=== PATIENT | male | born 1950 | race Caucasian/White ===

== ENCOUNTER 2019-05-25 11:07 | Emergency (ER) | payer MEDICARE, MEDICAID ==
[~2019-05-25] VITALS: Ht 182.9 cm; Wt 95.7 kg
--- NOTE | 2019-05-25 11:50 | ED General ---
General Chief Complaint: General Problems/Pain Stated Complaint: SEIZURE Nursing Triage Note: PT REPORTS HE HAS BEEN PRETENDING TO HAVE SEIZURES WHILE GETTING PHYSICAL THERAPY AT [facility] BECAUSE "I DONT WANNA DO THAT G DAMN THERAPY". PT DENIES PAIN OR ANY COMPLAINTS OTHER THAN HE REFUSES TO CONTINUE THE THERAPY RECOMMENDED POST OP BELOW THE KNEE AMPUTATION IN REHAB. Nursing Sepsis Screen: No Definite Risk Source of Information: Patient, EMS, Family Exam Limitations: No Limitations History of Present Illness Date Seen by Provider: May 25, 2019 Time Seen by Provider: 11:30 Initial Comments Presents via EMS with complaint of seizures. Caregivers state he has been having seizures and unable to therapy. Occurring a few times weekly. Seizures last less than 5 minutes. Known history of epilepsy and taking Keppra. No postictal symptoms awake and alert without complaints otherwise on arrival. Patient currently has a wound VAC on his right lower extremity from below knee amputation feb 07 2019 Tells nursing staff that he has the seizures on purpose so that he doesn't have to do his therapy. Allergies and Home Medications Patient Home Medication List Home Medication List Reviewed: Yes Review of Systems Review of Systems Constitutional: no symptoms reported; No dizziness, No fever, No malaise, No weakness Cardiovascular: no symptoms reported; No chest pain, No edema, No palpitations, No syncope, No vascular heart diseas Gastrointestinal: No abdominal pain, No nausea, No vomiting Musculoskeletal: No back pain, No joint pain, No joint swelling, No muscle pain Past Repjhhb-Yfezeb-Ewyujj Hx Patient Social History Alcohol Use: Denies Use Recreational Drug Use: No Smoking Status: Former Smoker Type Used: Cigarettes 2nd Hand Smoke Exposure: No Recent Foreign Travel: No Contact w/Someone Who Travel: No Recent Infectious Disease Expo: No Recent Hopitalizations: Yes Physical Abuse: No Sexual Abuse: No Mistreated: No Fear: No Seasonal Allergies Seasonal Allergies: No Past Medical History Surgeries: Yes (JAW SURGERY D/T INJURY) Amputation, CABG, Coronary Stent, Orthopedic Cardiac: Yes Coronary Artery Disease, Hypertension, Peripheral Vascular Neurological: Yes Neuropathy, Seizure Disorder Genitourinary: Yes Benign Prostatic Hyperpl, Prostate Problems, UTI-Chronic Gastrointestinal: Yes Gastroesophageal Reflux Musculoskeletal: Yes Amputee Endocrine: Yes Diabetes, Non-Insulin dep Are Your Blood Sugars Over 250: No HEENT: No Cancer: No Psychosocial: No Integumentary: Yes (WOUND VAC PRESENT FOR INFECTION OF AMPUTATED LEG) Blood Disorders: No Physical Exam Vital Signs Vital Signs - First Documented 05/25/19 11:18 Temp 97.0 Pulse 78 Resp 18 B/P (MAP) 139/85 (103) O2 Delivery Room Air Capillary Refill : Less Than 3 Seconds Height, Weight, BMI Height: 6'" Weight: 211lbs. oz. [id number]; BMI Method:Stated General Appearance: No Apparent Distress, WD/WN; No Anxious, No Mild Distress Respiratory: Chest Non Tender, Lungs Clear, Normal Breath Sounds Cardiovascular: Regular Rate, Rhythm, No Edema, No Murmur Gastrointestinal: Normal Bowel Sounds, No Organomegaly, Non Tender, Soft Extremity: Normal Capillary Refill, No Calf Tenderness, Other (R BKA w wound vac) Neurologic/Psychiatric: Alert, Oriented x3, No Motor/Sensory Deficits, Normal Mood/Affect, making department preparer II-XII Norm as Tested; No Aphasia, No Facial Droop, No Motor Weakness Skin: Normal Color, Warm/Dry Progress/Results/Core Measures Suspected Sepsis Recent Fever Within 48 Hours: No Infection Criteria Present: None New/Unexplained Altered Menta: No Sepsis Screen: No Definite Risk SIRS Temperature:97.0 Pulse: 78 Respiratory Rate: 18 Laboratory Tests 05/25/19 11:55: White Blood Count 8.8 Blood Pressure 139 /85 Mean: 103 Laboratory Tests 05/25/19 11:55: Creatinine 0.78, Platelet Count 190, Total Bilirubin 0.4 Results/Orders Lab Results Laboratory Tests Test 05/25/19 11:55 Range/Units White Blood Count 8.8 4.3-11.0 10^3/uL Red Blood Count 4.94 4.35-5.85 10^6/uL Hemoglobin 14.3 13.3-17.7 G/DL Hematocrit 44 40-54 % Mean Corpuscular Volume 90 80-99 FL Mean Corpuscular Hemoglobin 29 25-34 PG Mean Corpuscular Hemoglobin Concent 32 32-36 G/DL Red Cell Distribution Width 14.7 H 10.0-14.5 % Platelet Count 190 130-400 10^3/uL Mean Platelet Volume 11.0 H 7.4-10.4 FL Neutrophils (%) (Auto) 55 42-75 % Lymphocytes (%) (Auto) 29 12-44 % Monocytes (%) (Auto) 8 0-12 % Eosinophils (%) (Auto) 7 0-10 % Basophils (%) (Auto) 1 0-10 % Neutrophils # (Auto) 4.8 1.8-7.8 X 10^3 Lymphocytes # (Auto) 2.6 1.0-4.0 X 10^3 Monocytes # (Auto) 0.7 0.0-1.0 X 10^3 Eosinophils # (Auto) 0.6 H 0.0-0.3 10^3/uL Basophils # (Auto) 0.1 0.0-0.1 10^3/uL Sodium Level 142 135-145 MMOL/L Potassium Level 4.4 3.6-5.0 MMOL/L Chloride Level 102 98-107 MMOL/L Carbon Dioxide Level 29 21-32 MMOL/L Anion Gap 11 5-14 MMOL/L Blood Urea Nitrogen 18 7-18 MG/DL Creatinine 0.78 0.60-1.30 MG/DL Estimat Glomerular Filtration Rate > 60 BUN/Creatinine Ratio 23 Glucose Level 126 H 70-105 MG/DL Calcium Level 9.4 8.5-10.1 MG/DL Corrected Calcium 9.6 8.5-10.1 MG/DL Total Bilirubin 0.4 0.1-1.0 MG/DL Aspartate Amino Transf (AST/SGOT) 14 5-34 U/L Alanine Aminotransferase (ALT/SGPT) 13 0-55 U/L Alkaline Phosphatase 106 40-136 U/L Total Protein 7.4 6.4-8.2 GM/DL Albumin 3.8 3.2-4.5 GM/DL My Orders Orders - ROVENSTINE,YOSSI L DO Levetiracetam Level (Keppra) (05/25/19 11:43) Cbc With Automated Diff (05/25/19 11:43) Comprehensive Metabolic Panel (05/25/19 11:43) Urinalysis (05/25/19 11:43) Vital Signs/I&O 05/25/19 11:18 Temp 97.0 Pulse 78 Resp 18 B/P (MAP) 139/85 (103) O2 Delivery Room Air Capillary Refill : Less Than 3 Seconds Blood Pressure Mean: 103 Departure Impression Primary Impression: Epilepsy Qualified Codes: G40.909 - Epilepsy, unspecified, not intractable, without status epilepticus Disposition: 03 XFER SNF (patient currently residing at [facility]) Condition: Stable Departure-Patient Inst. Decision time for Depature: 12:31 Patient Instructions: Epilepsy in Adults Add. Discharge Instructions: All discharge instructions reviewed with patient and/or family. Voiced understanding. Advised to see Primary Care Provider in 5 to 7 days to discuss Epilepsy and Keppra levels (lab drawn today 25 May) YOSSI THOMAS DO May 25, 2019 11:50
[2019-05-25 12:25] LABS: BASOPHILS % (AUTO) 1 % (0-10); EOSINOPHILS # (AUTO) 0.6 10^3/uL (0.0-0.3); EOSINOPHILS % (AUTO) 7 % (0-10); HEMATOCRIT 44 % (40-54); HEMOGLOBIN 14.3 G/DL (13.3-17.7); LYMPHOCYTES # (AUTO) 2.6 X 10^3 (1.0-4.0); LYMPHOCYTES % (AUTO) 29 % (12-44); MEAN CORPUSCULAR HEMOGLOBIN 29 PG (25-34); MEAN CORPUSCULAR HGB CONC 32 G/DL (32-36); MEAN CORPUSCULAR VOLUME 90 FL (80-99); MONOCYTES # (AUTO) 0.7 X 10^3 (0.0-1.0); MONOCYTES % (AUTO) 8 % (0-12); NEUTROPHILS # (AUTO) 4.8 X 10^3 (1.8-7.8); NEUTROPHILS % (AUTO) 55 % (42-75); PLATELET COUNT 190 10^3/uL (130-400); RED CELL DISTRIBUTION WIDTH 14.7 % (10.0-14.5); WHITE BLOOD COUNT 8.8 10^3/uL (4.3-11.0)
[2019-05-25 12:26] LABS: BASOPHILS # (AUTO) 0.1 10^3/uL (0.0-0.1)
[2019-05-25 12:28] LABS: ALANINE AMINOTRANSFERASE 13 U/L (0-55); ALBUMIN 3.8 GM/DL (3.2-4.5); ALKALINE PHOSPHATASE 106 U/L (40-136); BILIRUBIN,TOTAL 0.4 MG/DL (0.1-1.0); BUN/CREATININE RATIO 23; CALCIUM 9.4 MG/DL (8.5-10.1); CARBON DIOXIDE 29 MMOL/L (21-32); CHLORIDE 102 MMOL/L (98-107); CREATININE SERUM 0.78 MG/DL (0.60-1.30); GFR ESTIMATED > 60; GLUCOSE 126 MG/DL (70-105); POTASSIUM 4.4 MMOL/L (3.6-5.0); SODIUM 142 MMOL/L (135-145); TOTAL PROTEIN 7.4 GM/DL (6.4-8.2)
[2019-05-25 12:30] VITALS: BP 142/72
== END 2019-05-25 12:35 | disposition home or self-care (01) ==
LOC: ER FS 11:08
DX: G40.909 Epilepsy, unspecified, not intractable, without status epilepticus (principal); I25.10 Atherosclerotic heart disease of native coronary artery without angina pectoris; I10 Essential (primary) hypertension; E11.51 Type 2 diabetes mellitus with diabetic peripheral angiopathy without gangrene; E11.40 Type 2 diabetes mellitus with diabetic neuropathy, unspecified; N40.0 Benign prostatic hyperplasia without lower urinary tract symptoms; K21.9 Gastro-esophageal reflux disease without esophagitis; Z87.440 Personal history of urinary (tract) infections; Z87.891 Personal history of nicotine dependence; Z95.1 Presence of aortocoronary bypass graft; Z95.5 Presence of coronary angioplasty implant and graft; Z89.511 Acquired absence of right leg below knee
CPT/HCPCS: 36415; 80053; 80177; 85025

== ENCOUNTER 2019-06-04 13:47 | Emergency (ER) | payer MEDICARE, MEDICAID ==
[~2019-06-04] VITALS: Ht 183 cm; Wt 94.5 kg
--- NOTE | 2019-06-04 14:27 | Diagnostic Imaging Report ---
PROCEDURE: CT head without contrast. TECHNIQUE: Multiple contiguous axial images were obtained through the brain without the use of intravenous contrast. Auto Exposure Controls were utilized during the CT exam to meet ALARA standards for radiation dose reduction. INDICATION: Altered mental status. COMPARISON: None. FINDINGS: Advanced generalized cerebral and cerebellar parenchymal volume loss. Advanced leukoaraiosis. No CT evidence of a territorial infarction. Intracranial vascular calcifications. Advanced mucosal thickening in the partially visualized left maxillary sinus. The mastoids are clear. Osseous structures are intact. IMPRESSION: 1. No acute intracranial CT findings. 2. Advanced mucosal thickening in the left maxillary sinus. Dictated by: Dictated on workstation # [id number]
--- NOTE | 2019-06-04 14:36 | Diagnostic Imaging Report ---
INDICATION: Altered mental status and seizure-like activity. Frontal chest obtained at 2:05 p.m. FINDINGS: The heart is normal in size. Patient has had prior sternotomy. Mediastinal silhouette appears unremarkable. The lungs are clear. There is no pneumothorax or pleural fluid. IMPRESSION: Negative chest. Dictated by: Dictated on workstation # [id number]
[2019-06-04] MEDS ORDERED: LEVETIRACETAM INJECTION 1,000 MG in NS (IVPB) 100 ML IV ONE (14:45)
[2019-06-04 14:59] LABS: EOSINOPHILS % (AUTO) 7 % (0-10); HEMATOCRIT 45 % (40-54); HEMOGLOBIN 14.8 G/DL (13.3-17.7); LYMPHOCYTES % (AUTO) 27 % (12-44); MEAN CORPUSCULAR HEMOGLOBIN 29 PG (25-34); MEAN CORPUSCULAR HGB CONC 33 G/DL (32-36); MEAN CORPUSCULAR VOLUME 88 FL (80-99); MEAN PLATELET VOLUME 10.9 FL (7.4-10.4); MONOCYTES % (AUTO) 9 % (0-12); NEUTROPHILS % (AUTO) 56 % (42-75); PLATELET COUNT 230 10^3/uL (130-400); RED CELL DISTRIBUTION WIDTH 14.3 % (10.0-14.5); WHITE BLOOD COUNT 8.1 10^3/uL (4.3-11.0)
[2019-06-04 15:00] LABS: BASOPHILS # (AUTO) 0.1 10^3/uL (0.0-0.1); BASOPHILS % (AUTO) 1 % (0-10); EOSINOPHILS # (AUTO) 0.6 10^3/uL (0.0-0.3); LYMPHOCYTES # (AUTO) 2.2 X 10^3 (1.0-4.0); MONOCYTES # (AUTO) 0.7 X 10^3 (0.0-1.0); NEUTROPHILS # (AUTO) 4.5 X 10^3 (1.8-7.8)
[2019-06-04 15:07] LABS: INR 1.1 (0.8-1.4); PROTHROMBIN TIME PATIENT 14.5 SEC (12.2-14.7)
--- NOTE | 2019-06-04 15:07 | ED General ---
General Chief Complaint: Neuro-Stroke Like Symptoms Stated Complaint: SEIZURE-LIKE ACTIVITY History of Present Illness Date Seen by Provider: Jun 04, 2019 Time Seen by Provider: 15:04 Initial Comments Patient presenting to the emergency department for evaluation of reported seizure activity. He has a diagnosis of epilepsy and is on 750 mg of Keppra twice daily. He has absence seizures and reportedly had 3 of them back to back to the custodial this afternoon and was quite confused afterwards and could not move his left side of his body. Patient is confused on arrival and on my exam he can move his left arm but he can not move his left leg. He denies any pain to me. says that he has been having more seizures and he was due to see his neurologist and possibly have his Keppra adjusted upwards. He is in no obvious distress with normal vital signs. Allergies and Home Medications Allergies Coded Allergies: No Known Drug Allergies (Unverified , 06/04/19) Patient Home Medication List Home Medication List Reviewed: Yes Review of Systems Review of Systems Constitutional: no symptoms reported EENTM: no symptoms reported Respiratory: no symptoms reported Cardiovascular: no symptoms reported Gastrointestinal: no symptoms reported Genitourinary: no symptoms reported Musculoskeletal: no symptoms reported Skin: no symptoms reported Psychiatric/Neurological: No Symptoms Reported Hematologic/Lymphatic: No Symptoms Reported Past Pmfadcg-Dprnju-Veczkw Hx Patient Social History Type Used: Cigarettes 2nd Hand Smoke Exposure: No Recent Hopitalizations: Yes Seasonal Allergies Seasonal Allergies: No Past Medical History Surgeries: Yes (JAW SURGERY D/T INJURY) Amputation, CABG, Coronary Stent, Orthopedic Cardiac: Yes Coronary Artery Disease, Hypertension, Peripheral Vascular Neurological: Yes Neuropathy, Seizure Disorder Genitourinary: Yes Benign Prostatic Hyperpl, Prostate Problems, UTI-Chronic Gastrointestinal: Yes Gastroesophageal Reflux Musculoskeletal: Yes Amputee Endocrine: Yes Diabetes, Non-Insulin dep HEENT: No Cancer: No Psychosocial: No Integumentary: Yes (WOUND VAC PRESENT FOR INFECTION OF AMPUTATED LEG) Blood Disorders: No Physical Exam Vital Signs Capillary Refill : Height, Weight, BMI Height: 6'" Weight: 211lbs. oz. 95.001797fe; BMI Method:Stated General Appearance: No Apparent Distress, WD/WN HEENT: PERRL/EOMI Neck: Supple Respiratory: Chest Non Tender, No Respiratory Distress Cardiovascular: Regular Rate, Rhythm Gastrointestinal: Non Tender, Soft Back: Normal Inspection Extremity: Normal Capillary Refill, No Pedal Edema Neurologic/Psychiatric: Alert, Disoriented, Motor Weakness (left lower extremity is completely flaccid) Skin: Warm/Dry Progress/Results/Core Measures Suspected Sepsis SIRS Temperature: Pulse: Respiratory Rate: Laboratory Tests 06/04/19 14:00: White Blood Count 8.1 Blood Pressure / Mean: Laboratory Tests 06/04/19 14:00: INR Comment 1.1, Platelet Count 230 06/04/19 14:50: Creatinine 0.80, Total Bilirubin 0.3 Results/Orders Lab Results Laboratory Tests Test 06/04/19 14:00 06/04/19 14:50 06/04/19 15:07 Range/Units White Blood Count 8.1 4.3-11.0 10^3/uL Red Blood Count 5.09 4.35-5.85 10^6/uL Hemoglobin 14.8 13.3-17.7 G/DL Hematocrit 45 40-54 % Mean Corpuscular Volume 88 80-99 FL Mean Corpuscular Hemoglobin 29 25-34 PG Mean Corpuscular Hemoglobin Concent 33 32-36 G/DL Red Cell Distribution Width 14.3 10.0-14.5 % Platelet Count 230 130-400 10^3/uL Mean Platelet Volume 10.9 H 7.4-10.4 FL Neutrophils (%) (Auto) 56 42-75 % Lymphocytes (%) (Auto) 27 12-44 % Monocytes (%) (Auto) 9 0-12 % Eosinophils (%) (Auto) 7 0-10 % Basophils (%) (Auto) 1 0-10 % Neutrophils # (Auto) 4.5 1.8-7.8 X 10^3 Lymphocytes # (Auto) 2.2 1.0-4.0 X 10^3 Monocytes # (Auto) 0.7 0.0-1.0 X 10^3 Eosinophils # (Auto) 0.6 H 0.0-0.3 10^3/uL Basophils # (Auto) 0.1 0.0-0.1 10^3/uL Prothrombin Time 14.5 12.2-14.7 SEC INR Comment 1.1 0.8-1.4 Activated Partial Thromboplast Time 32 24-35 SEC Sodium Level 138 135-145 MMOL/L Potassium Level 4.6 3.6-5.0 MMOL/L Chloride Level 98 98-107 MMOL/L Carbon Dioxide Level 27 21-32 MMOL/L Anion Gap 13 5-14 MMOL/L Blood Urea Nitrogen 24 H 7-18 MG/DL Creatinine 0.80 0.60-1.30 MG/DL Estimat Glomerular Filtration Rate > 60 BUN/Creatinine Ratio 30 Glucose Level 155 H 70-105 MG/DL Calcium Level 9.6 8.5-10.1 MG/DL Corrected Calcium 9.8 8.5-10.1 MG/DL Magnesium Level 1.8 1.6-2.4 MG/DL Total Bilirubin 0.3 0.1-1.0 MG/DL Aspartate Amino Transf (AST/SGOT) 16 5-34 U/L Alanine Aminotransferase (ALT/SGPT) 11 0-55 U/L Alkaline Phosphatase 108 40-136 U/L Troponin I < 0.30 <0.30 NG/ML Pro-B-Type Natriuretic Peptide 150.8 H <75.0 PG/ML Total Protein 7.5 6.4-8.2 GM/DL Albumin 3.7 3.2-4.5 GM/DL Urine Color YELLOW Urine Clarity CLOUDY Urine pH 5.5 5-9 Urine Specific [place] 1.025 H 1.016-1.022 Urine Protein 2+ H NEGATIVE Urine Glucose (UA) NEGATIVE NEGATIVE Urine Ketones NEGATIVE NEGATIVE Urine Nitrite NEGATIVE NEGATIVE Urine Bilirubin NEGATIVE NEGATIVE Urine Urobilinogen 0.2 NORMAL MG/DL Urine Leukocyte Esterase 2+ H NEGATIVE Urine RBC (Auto) 3+ H NEGATIVE Urine RBC TNTC H /HPF Urine WBC >100 H /HPF Urine Crystals NONE /LPF Urine Bacteria FEW H /HPF Urine Casts NONE /LPF Urine Mucus NEGATIVE /LPF Urine Culture Indicated YES My Orders Orders - GOKUL MASSEY DO Ct Head Wo (06/04/19 13:56) Cbc With Automated Diff (06/04/19 13:56) Comprehensive Metabolic Panel (06/04/19 13:56) Magnesium (06/04/19 13:56) Partial Thromboplastin Time (06/04/19 13:56) Protime With Inr (06/04/19 13:56) Probnp Fs (06/04/19 13:56) Troponin I (06/04/19 13:56) Ua Culture If Indicated (06/04/19 13:56) Chest 1 View Ap/Pa Only (06/04/19 13:56) Ekg Tracing (06/04/19 13:56) Levetiracetam Injection (Keppra Injectio (06/04/19 14:45) Urine Culture (06/04/19 15:07) Ceftriaxone For Iv Use (Rocephin For I (06/04/19 15:45) Medications Given in ED Current Medications Medications Dose Ordered Sig/Kayy Route Start Time Stop Time Status Last Admin Dose Admin Levetiracetam 1000 mg/Sodium Chloride 110 ml @ 440 mls/hr ONCE ONCE IV 06/04/19 14:45 06/04/19 14:59 DC 06/04/19 15:31 440 MLS/HR Vital Signs/I&O Capillary Refill : Progress Note : Progress Note Patient strength in his left lower extremity improved to just slight drift. 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 Patient returned to his baseline neurologic status per . I still recommended that we transfer him to another facility so that he could see a neurologist and see if his medications need to be adjusted or if his medications and to be changed. He has had increased seizure frequency and length of seizures has increased as well. Patient refuses this as he says he does not like riding in ambulances. Patient is now alert and oriented 3 and his is present and she is agreeable to whatever the patient decides. Patient reportedly was going to have his medications increased so I could try adjusting his medications and see if this helps his symptoms. I will also treat him for urinary tract infection although he does have the catheter in place so this will need to be cultured. Patient was told that he could suffer adverse outcomes including and disability from not having his seizures fully evaluated and he verbalized understanding and accepted these risks. Patient will be discharged in stable condition on Keflex and an increased dose of Keppra told to follow primary care provider and neurologist as soon as possible and come back to the ED sooner with worsening pain neurologic changes or other general concerns. Patient and aware and agreeable with plan and verbalized understanding of the above instructions. Departure Impression Primary Impression: Seizures Additional Impressions: UTI (urinary tract infection) Loc's paralysis Disposition: 01 HOME, SELF-CARE Condition: Stable Departure-Patient Inst. Referrals: NO,LOCAL PHYSICIAN (PCP/Family) Primary Care Physician Patient Instructions: Seizures, Urinary Tract Infections in Adults Scripts Cephalexin (Keflex) 500 Mg Capsule 500 MG PO TID, #21 CAP Prov: GOKUL MASSEY DO 06/04/19 Levetiracetam (Keppra) 1,000 Mg Tablet 1000 MG PO every morning, #30 TAB Prov: GOKUL MASSEY DO 06/04/19 Levetiracetam (Keppra) 750 Mg Tablet 750 MG PO HS, #30 TAB Prov: GOKUL MASSEY DO 06/04/19 OGKUL MASSEY DO Jun 04, 2019 15:07
[2019-06-04 15:30] LABS: ALANINE AMINOTRANSFERASE 11 U/L (0-55); ALBUMIN 3.7 GM/DL (3.2-4.5); ALKALINE PHOSPHATASE 108 U/L (40-136); BILIRUBIN,TOTAL 0.3 MG/DL (0.1-1.0); BUN/CREATININE RATIO 30; CALCIUM 9.6 MG/DL (8.5-10.1); CARBON DIOXIDE 27 MMOL/L (21-32); CHLORIDE 98 MMOL/L (98-107); GFR ESTIMATED > 60; GLUCOSE 155 MG/DL (70-105); MAGNESIUM 1.8 MG/DL (1.6-2.4); POTASSIUM 4.6 MMOL/L (3.6-5.0); SODIUM 138 MMOL/L (135-145); TOTAL PROTEIN 7.5 GM/DL (6.4-8.2)
[2019-06-04 15:38] LABS: CLARITY,URINE CLOUDY; COLOR,URINE YELLOW
[2019-06-04 15:39] LABS: BACTERIA,URINE FEW /HPF; BILIRUBIN,URINE NEGATIVE (NEGATIVE); GLUCOSE, URINE (UA) NEGATIVE (NEGATIVE); KETONES,URINE NEGATIVE (NEGATIVE); LEUKOCYTE ESTERASE ,URINE 2+ (NEGATIVE); NITRITE,URINE NEGATIVE (NEGATIVE); PH,URINE 5.5 (5-9); PROTEIN,URINE 2+ (NEGATIVE); RBC,URINE TNTC /HPF; UROBILINOGEN,URINE 0.2 MG/DL (NORMAL); WBC,URINE >100 /HPF
[2019-06-04] MEDS ORDERED: cefTRIAXone FOR IV USE 2,000 MG in WATER (STERILE) FOR INJECTION 20 ML IV ONE (15:45)
[2019-06-04] MEDS ORDERED: LEVE100015 PO (15:49)
[2019-06-04] MEDS ORDERED: CEPH-507 PO (15:49)
[2019-06-04] MEDS ORDERED: LEVE750T19 PO (15:49)
[2019-06-04 17:00] VITALS: BP 122/60
== END 2019-06-04 17:00 | disposition home or self-care (01) ==
LOC: EDUNIT# 13:47 → ER FS 13:48
DX: G40.909 Epilepsy, unspecified, not intractable, without status epilepticus (principal); N39.0 Urinary tract infection, site not specified; G83.84 Todd's paralysis (postepileptic); I25.10 Atherosclerotic heart disease of native coronary artery without angina pectoris; I10 Essential (primary) hypertension; E11.51 Type 2 diabetes mellitus with diabetic peripheral angiopathy without gangrene; E11.40 Type 2 diabetes mellitus with diabetic neuropathy, unspecified; N40.0 Benign prostatic hyperplasia without lower urinary tract symptoms; Z87.440 Personal history of urinary (tract) infections; Z95.1 Presence of aortocoronary bypass graft; Z95.5 Presence of coronary angioplasty implant and graft
CPT/HCPCS: 36415; 70450; 71045; 80053; 81000; 83735; 83880; 84484; 85025; 85610; 85730; 87077; 87088; 87106; 93005; 96374; 96375

== ENCOUNTER → 2019-09-04 | Outpatient (CLI) | payer MEDICARE, MEDICAID ==
[~2019-09-04] MED LIST: CEPH-507 PO; LEVE100015 PO; LEVE750T19 PO
[2019-09-04 19:34] LABS: BILIRUBIN,URINE NEGATIVE (NEGATIVE); CLARITY,URINE CLOUDY; COLOR,URINE DARK YELLOW; GLUCOSE, URINE (UA) NEGATIVE (NEGATIVE); KETONES,URINE NEGATIVE (NEGATIVE); LEUKOCYTE ESTERASE ,URINE 1+ (NEGATIVE); NITRITE,URINE POSITIVE (NEGATIVE); PROTEIN,URINE 2+ (NEGATIVE); RBC,URINE >100 /HPF; WBC,URINE 50-100 /HPF
[2019-09-04 19:35] LABS: BACTERIA,URINE LARGE /HPF
== END ==
LOC: LAB FS 18:31
PROVIDERS: ATTEND Family Medicine
DX: R82.998 Other abnormal findings in urine (principal)
CPT/HCPCS: 81000; 87077; 87088

== ENCOUNTER → 2019-11-14 | Outpatient (CLI) | payer MEDICARE, MEDICAID ==
[2019-11-14 16:04] LABS: BILIRUBIN,URINE NEGATIVE (NEGATIVE); CLARITY,URINE CLOUDY; COLOR,URINE YELLOW; GLUCOSE, URINE (UA) NEGATIVE (NEGATIVE); KETONES,URINE NEGATIVE (NEGATIVE); NITRITE,URINE POSITIVE (NEGATIVE); PH,URINE 5.5 (5-9); PROTEIN,URINE NEGATIVE (NEGATIVE)
[2019-11-14 16:05] LABS: BACTERIA,URINE LARGE /HPF; LEUKOCYTE ESTERASE ,URINE 1+ (NEGATIVE); RBC,URINE 2+5 /HPF; WBC,URINE 50-100 /HPF
== END ==
LOC: LAB FS 15:35
PROVIDERS: ATTEND Family Medicine
DX: R50.9 Fever, unspecified (principal); R82.90 Unspecified abnormal findings in urine
CPT/HCPCS: 81000; 87088

== ENCOUNTER → 2019-12-14 | Outpatient (CLI) | payer MEDICARE, MEDICAID ==
[2019-12-14 18:11] LABS: BILIRUBIN,URINE NEGATIVE (NEGATIVE); CLARITY,URINE CLEAR; COLOR,URINE YELLOW; GLUCOSE, URINE (UA) NEGATIVE (NEGATIVE); KETONES,URINE NEGATIVE (NEGATIVE); LEUKOCYTE ESTERASE ,URINE 3+ (NEGATIVE); NITRITE,URINE POSITIVE (NEGATIVE); PH,URINE 5.5 (5-9); PROTEIN,URINE 2+ (NEGATIVE); WBC,URINE TNTC /HPF
== END ==
LOC: LAB FS 17:08
PROVIDERS: ATTEND Family Medicine
DX: N13.8 Other obstructive and reflux uropathy (principal); R30.0 Dysuria
CPT/HCPCS: 81000; 87077; 87088; 87186